=== PATIENT | female | born 1950 | race Two or more races ===

== ENCOUNTER 2023-11-25 04:33 | Inpatient (IN) | payer OTHER, MEDICAID ==
[~2023-11-25] VITALS: Ht 162.6 cm; Wt 69.5 kg
[2023-11-25] MEDS: SODIUM CHLORIDE 0.9% 1,000 ML IV ONE (04:52)
[2023-11-25 05:01] LABS: Basophils # (auto) 0.1 10 ^3/uL (0-0.2); Eosinophils # (auto) 0.3 10 ^3/uL (0-0.8)
[2023-11-25 05:03] LABS: Basophils % (auto) 0.6 % (0.0-2.0); Eosinophils % (auto) 1.9 % (0.0-7.0); Hemoglobin 13.6 g/dL (12.2-16.2); Lymphocytes % (auto) 51.7 % (10.0-50.0); Mean Corpuscular Hemoglobin 29.3 pg (28.0-32.0); Mean Corpuscular Hgb Conc. 34.7 g/dL (32.0-36.0); Mean Corpuscular Volume 84.4 fL (80.0-100.0); Neutrophils # (auto) 5.3 10 ^3/uL (1.6-8.6); Neutrophils % (auto) 38.8 % (37.0-80.0); Nucleated Red Blood Cells % 0.1 %; Platelet Count (auto) 493 10^3/uL (140-450); Red Blood Cells 4.62 10^6/uL (4.0-5.20); Red Cell Distribution Width 14.3 % (11.8-14.3); White Blood Cell 13.6 10^3/uL (4.4-10.8)
[2023-11-25] MEDS: LORazepam 2MG/ML-1ML VIAL IV ONE (05:04)
[2023-11-25 05:12] LABS: Chloride 100 mmol/L (98-107); Potassium 3.9 mmol/L (3.5-5.1); Sodium 133 mmol/L (136-145)
[2023-11-25 05:13] LABS: Anion Gap 10 (5-15); Calcium 9.4 mg/dL (8.7-10.4); Carbon Dioxide 23 mmol/L (20-30)
[2023-11-25 05:18] LABS: BUN/Creatinine Ratio 11.6 (10.0-20.0); Blood Urea Nitrogen 11 mg/dL (9-23); Glucose 125 mg/dL (74-106)
[2023-11-25] MEDS: dilTIAZem 25 MG/5 ML VIAL IV ONE ×3 (05:20→07:51)
[2023-11-25] MEDS: dilTIAZem 125mg/125ml BAG KIT 125 ML IV ONE (05:20)
[2023-11-25 05:29] LABS: INR 0.94 (0.9-1.15)
[2023-11-25 06:00] VITALS: PULSE 137; RESP 22; O2SAT 97
[2023-11-25 07:40] LABS: Urine Bacteria MANY /hpf (None Seen); Urine Blood TRACE /uL (Negative); Urine Clarity Turbid (Clear); Urine Color Colorless (Yellow); Urine Hyaline Cast FEW /lpf (0 - 2); Urine Protein, UAD Negative (Negative); Urine Specific Gravity 1.004 (1.001-1.035); Urine Urobilinogen Normal (Negative); Urine WBC 35 /hpf (0 - 5); Urine pH 6.5 (5.0-9.0)
[2023-11-25 08:00] VITALS: PULSE 106; RESP 18; O2SAT 94
[2023-11-25] MEDS: cefTRIAXone 1GM/50ML D5W 50 ML IV ONE (12:22)
[2023-11-25] MEDS: LEVOTHYROXINE SODIUM 25 MCG TAB PO ONE (12:22)
[2023-11-25] MEDS ORDERED: DOCUSATE SOD 100 MG CAP PO PRN (14:00)
[2023-11-25] MEDS ORDERED: ONDANSETRON HCL 4 MG/2 ML VIAL IV PRN (14:00)
[2023-11-25] MEDS ORDERED: MORPHINE SULFATE INJ 2 MG/ml SYRG IV PRN ×2 (14:00)
[2023-11-25] MEDS ORDERED: NITROGLYCERIN 0.4 MG SL TAB SL PRN (14:00)
[2023-11-25] MEDS ORDERED: ACETAMINOPHEN 325 MG TAB PO PRN (14:00)
[2023-11-25] MEDS: METOPROLOL TARTRATE 25 MG TAB PO SCH (14:31)
[2023-11-25] MEDS: ASPirin 81 mg TAB PO ONE (17:34)
[2023-11-25] MEDS: IOHEXOL 350 MG/ML 100ML IJ ONE (17:57)
[2023-11-25] MEDS: NIFEdipine ER 30 MG TAB PO ONE (18:25)
[2023-11-25 19:01] LABS: Magnesium 1.9 mg/dL (1.6-2.6)
[2023-11-25] MEDS: hydrALAZINE HCL 20 MG/ML VL IV PRN (21:05)
[2023-11-25 21:30] VITALS: PULSE 87; RESP 13; O2SAT 97
[2023-11-25] MEDS: ATORVASTATIN 20 MG TAB PO SCH (22:00)
[2023-11-25] MEDS: AMIODARONE HCL 200 MG TAB PO SCH (22:06)
[2023-11-25] MEDS: ENOXAPARIN SOD 80 MG/0.8ML SYRINGE SC SCH (22:06)
[2023-11-25 22:43] VITALS: BP 155/63; PULSE 74; RESP 17; TEMP 97.6; O2SAT 95
[2023-11-26] VITALS (7 sets, daily range): BP systolic 147–160; BP diastolic 64–77; PULSE 69–83; RESP 15–17; TEMP 36.7; O2SAT 92–97
[2023-11-26] MEDS ORDERED: MELA3TAB27 PO ×2 (04:08)
[2023-11-26] MEDS ORDERED: DIPH25CA66 PO ×2 (04:08)
[2023-11-26] MEDS ORDERED: HYDR-4902 PO ×2 (04:08)
[2023-11-26 06:35] LABS: Basophils # (auto) 0.2 10 ^3/uL (0-0.2); Basophils % (auto) 1.5 % (0.0-2.0); Eosinophils # (auto) 0.1 10 ^3/uL (0-0.8); Hematocrit 36.7 % (36.0-46.0); Hemoglobin 12.6 g/dL (12.2-16.2); Lymphocytes # (auto) 3.8 10 ^3/uL (0.4-5.4); Mean Corpuscular Hemoglobin 28.7 pg (28.0-32.0); Mean Corpuscular Hgb Conc. 34.4 g/dL (32.0-36.0); Mean Corpuscular Volume 83.5 fL (80.0-100.0); Monocytes # (auto) 0.9 10 ^3/uL (0-1.3); Monocytes % (auto) 7.3 % (0.0-12.0); Neutrophils # (auto) 7.2 10 ^3/uL (1.6-8.6); Neutrophils % (auto) 59.2 % (37.0-80.0); Nucleated Red Blood Cells % 0.1 %; Platelet Count (auto) 500 10^3/uL (140-450); Red Cell Distribution Width 14.4 % (11.8-14.3); White Blood Cell 12.1 10^3/uL (4.4-10.8)
[2023-11-26 06:46] LABS: Anion Gap 8 (5-15); Carbon Dioxide 25 mmol/L (20-30); Chloride 101 mmol/L (98-107); Potassium 3.3 mmol/L (3.5-5.1); Sodium 134 mmol/L (136-145)
[2023-11-26 06:47] LABS: Calcium 10.2 mg/dL (8.7-10.4)
[2023-11-26 06:52] LABS: Blood Urea Nitrogen 6 mg/dL (9-23); Glucose 109 mg/dL (74-106)
[2023-11-26] MEDS: HYDROcodone-ACET 5/325MG TAB PO PRN (09:07)
[2023-11-26] MEDS: cefTRIAXone 1GM/50ML D5W 50 ML IV SCH (09:08)
[2023-11-26] MEDS: ASPirin 81 mg TAB PO SCH (09:38)
[2023-11-26] MEDS: NIFEdipine ER 30 MG TAB PO SCH (09:39)
[2023-11-26] MEDS ORDERED: ENOXAPARIN SOD 40 MG/0.4 ML SYRINGE SC SCH (10:00)
[2023-11-26] MEDS: MAGNESIUM SULFATE 1GM/100ML 100 ML IV ONE (11:22)
[2023-11-26] MEDS: POTASSIUM CHL 20 Meq TABLET PO ONE (12:29)
[2023-11-26] MEDS ORDERED: APIX5TAB PO ×2 (16:05)
[2023-11-26] MEDS ORDERED: CEFD300C2 PO ×2 (16:05)
[2023-11-26] MEDS ORDERED: AMIO200T13 PO ×2 (16:05)
[2023-11-26] MEDS ORDERED: MET25T PO ×2 (16:05)
[2023-11-26] MEDS ORDERED: ATOR20TA50 PO ×2 (16:05)
[2023-11-26] MEDS ORDERED: NIFE1TAB31 PO ×2 (16:05)
[2023-11-26] MEDS ORDERED: APIXABAN 5 MG TAB PO SCH (22:00)
[2023-11-26] MEDS ORDERED: ENOXAPARIN SOD 80 MG/0.8ML SYRINGE SC SCH (22:00)
[2023-11-27] MEDS ORDERED: NIFEdipine ER 30 MG TAB PO SCH (10:00)
[2023-11-28 10:13] LABS: Hepatitis B Surface Antigen Negative (Negative)
[2023-11-28 10:35] LABS: Hepatitis C Antibody Negative (Negative)
== END 2023-11-26 18:40 | disposition home or self-care (01) | DRG 281 ==
LOC: ER 04:33 → EDBD 04:33 → TELE 13:51 → TELE-CENTR 13:56
PROVIDERS: ADMIT Internal Medicine; ATTEND Internal Medicine
DX: I48.0 Paroxysmal atrial fibrillation (principal); N39.0 Urinary tract infection, site not specified; I21.A1 Myocardial infarction type 2; I16.0 Hypertensive urgency; E78.5 Hyperlipidemia, unspecified; E03.9 Hypothyroidism, unspecified; I27.20 Pulmonary hypertension, unspecified; I35.0 Nonrheumatic aortic (valve) stenosis; Z88.0 Allergy status to penicillin; I10 Essential (primary) hypertension
CPT/HCPCS: 36415; 71045; 71275; 80048; 80061; 81001; 83036; 83735; 83880; 84443; 84484; 85025; 85379; 85610; 86803; 87340; 93005; 93306; 97163; 99291; G0378

== ENCOUNTER 2023-11-29 14:30 | Emergency (ER) | payer OTHER, MEDICAID ==
[~2023-11-29] VITALS: Ht 162.6 cm; Wt 50.0 kg
[~2023-11-29 14:30] MED LIST: AMIO200T13 PO; APIX5TAB PO; ATOR20TA50 PO; CEFD300C2 PO; DIPH25CA66 PO; HYDR-4902 PO; MELA3TAB27 PO; MET25T PO; NIFE1TAB31 PO
[2023-11-29 14:35] VITALS: BP 196/76; PULSE 92; RESP 18; O2SAT 98
== END 2023-11-29 15:40 | disposition left against medical advice (07) ==
LOC: ER 14:30 → EDBD 14:30 → ER 15:40
DX: R04.0 Epistaxis (principal); Z53.21 Procedure and treatment not carried out due to patient leaving prior to being seen by health care provider

== ENCOUNTER 2023-11-30 21:04 | Emergency (ER) | payer OTHER, MEDICAID ==
[~2023-11-30] VITALS: Ht 157.5 cm; Wt 63.6 kg
[2023-11-30 21:38] LABS: Basophils # (auto) 0.1 10 ^3/uL (0-0.2); Basophils % (auto) 1.1 % (0.0-2.0); Eosinophils # (auto) 0.1 10 ^3/uL (0-0.8); Hematocrit 37.6 % (36.0-46.0); Hemoglobin 13.2 g/dL (12.2-16.2); Lymphocytes # (auto) 3.9 10 ^3/uL (0.4-5.4); Lymphocytes % (auto) 31.7 % (10.0-50.0); Mean Corpuscular Hemoglobin 29.1 pg (28.0-32.0); Mean Corpuscular Hgb Conc. 35.1 g/dL (32.0-36.0); Mean Corpuscular Volume 82.9 fL (80.0-100.0); Monocytes # (auto) 0.9 10 ^3/uL (0-1.3); Neutrophils # (auto) 7.2 10 ^3/uL (1.6-8.6); Neutrophils % (auto) 59.2 % (37.0-80.0); Nucleated Red Blood Cells % 0.1 %; Platelet Count (auto) 497 10^3/uL (140-450); Red Blood Cells 4.54 10^6/uL (4.0-5.20); Red Cell Distribution Width 14.3 % (11.8-14.3); White Blood Cell 12.2 10^3/uL (4.4-10.8)
[2023-11-30 21:45] LABS: Chloride 98 mmol/L (98-107); Potassium 3.4 mmol/L (3.5-5.1)
[2023-11-30 21:46] LABS: Anion Gap 9 (5-15); Calcium 9.9 mg/dL (8.7-10.4); Carbon Dioxide 22 mmol/L (20-30)
[2023-11-30 21:51] LABS: BUN/Creatinine Ratio 8.2 (10.0-20.0); Blood Urea Nitrogen 9 mg/dL (9-23); Glucose 96 mg/dL (74-106)
[2023-11-30 21:56] LABS: Sodium 129 mmol/L (136-145)
[2023-11-30 22:38] VITALS: PULSE 80; RESP 18; TEMP 98.5; O2SAT 95
[2023-11-30] MEDS: SODIUM CHLORIDE 0.9% 1,000 ML IV ONE (22:40)
[2023-11-30 23:30] LABS: Urine Bacteria None Seen /hpf (None Seen)
[2023-11-30 23:39] LABS: Urine Blood Negative /uL (Negative); Urine Clarity Clear (Clear); Urine Protein, UAD Negative (Negative); Urine Specific Gravity 1.002 (1.001-1.035); Urine Urobilinogen Normal (Negative); Urine WBC <1 /hpf (0 - 5)
[2023-11-30 23:43] LABS: Urine Color STRAW (Yellow)
[2023-11-30] MEDS: cloNIDine HCL 0.1 MG TAB PO ONE (23:53)
[2023-12-01] MEDS ORDERED: HYDROcodone-ACET 5/325MG TAB PO PRN (08:30)
[2023-12-01] MEDS: NIFEdipine ER 30 MG TAB PO SCH (09:51)
[2023-12-01] MEDS: AMIODARONE HCL 200 MG TAB PO SCH (09:52)
[2023-12-01] MEDS: METOPROLOL TARTRATE 25 MG TAB PO SCH (09:52)
[2023-12-01 10:03] VITALS: BP 149/72; PULSE 95; RESP 18; O2SAT 97
[2023-12-01] MEDS ORDERED: ATORVASTATIN 20 MG TAB PO SCH (22:00)
== END 2023-12-01 10:02 | disposition home or self-care (01) ==
LOC: EDBD 21:04 → ER 21:04
DX: I48.20 Chronic atrial fibrillation, unspecified (principal); E87.1 Hypo-osmolality and hyponatremia; R04.0 Epistaxis; I10 Essential (primary) hypertension; E78.5 Hyperlipidemia, unspecified; Z88.0 Allergy status to penicillin; Z79.899 Other long term (current) drug therapy
CPT/HCPCS: 30901; 36415; 70450; 80048; 81001; 84484; 85025; 93005; 96360; 99285; J7030

== ENCOUNTER 2023-12-03 13:42 | Emergency (ER) | payer OTHER, MEDICAID ==
[~2023-12-03] VITALS: Ht 157.5 cm; Wt 64.0 kg
[2023-12-03] MEDS: TRANEXAMIC ACID 1,000 MG in SODIUM CHL 0.9% 100 ML IV ONE (15:45)
[2023-12-03 17:04] VITALS: BP 123/71; PULSE 91; RESP 18; TEMP 98.7; O2SAT 94
== END 2023-12-03 17:27 | disposition home or self-care (01) ==
LOC: ER 13:42
DX: R04.0 Epistaxis (principal); E78.5 Hyperlipidemia, unspecified; I10 Essential (primary) hypertension; Z87.440 Personal history of urinary (tract) infections; Z88.0 Allergy status to penicillin
CPT/HCPCS: 30901